=== PATIENT | female | born 1935 | race Caucasian/White ===

== ENCOUNTER → 2017-10-14 07:39 | Outpatient (CLI) | payer MEDICARE, SELFPAY ==
[2017-01-30 09:16] VITALS: BP 141/67; BMI 24.0
[2017-10-14 08:35] LABS: T4 Free Direct 1.51 ng/dL (0.76-1.46); Thyroid Stim Hormone (TSH) 0.57 uIU/mL (0.358-3.74)
[2017-10-15 11:29] LABS: Vitamin D,25 Hydroxy 64.5 ng/mL (19.95-100.01)
== END ==
PROVIDERS: Family Provider Nurse Practitioner Family; PCP Nurse Practitioner Family; Visit Provider Nurse Practitioner Family
DX: E03.9 Hypothyroidism, unspecified (principal); E55.9 Vitamin D deficiency, unspecified
CPT/HCPCS: 36415; 82306; 84439; 84443

== ENCOUNTER → 2017-12-02 07:24 | Outpatient (CLI) | payer MEDICARE, SELFPAY ==
[2017-12-02 08:28] LABS: Absolute Lymphocyte Count 1.47 X10^3/ul (0.83-4.51); Absolute Neutrophil Count 2.8 X10^3/uL (2.0-7.7); Basophil# 0.07 X10^3/uL; Basophil% 1.4 % (0-1); Eosinophil# 0.25 X10^3/uL; Eosinophils% 4.8 % (0-5); Hematocrit 41.5 % (37-47); Lymphocyte # 1.47 X10^3/ul (4.0); Lymphocyte % 28.5 % (19-41); Mean Corp Hgb Conc 33.7 g/gl (32-36); Mean Corpuscular Hgb 31.5 pg (27.0-32.0); Mean Corpuscular Volume 93.5 fL (81-99); Mean Platelet Vol. 12.2 fl (6.2-12.0); Monocyte# 0.58 X10^3/uL; Monocyte% 11.2 % (0-10); Neutrophil # 2.79 X10^3/uL (2.7-7.7); Neutrophil % 54.1 % (47-70); POSITIVE COUNT NO; POSITIVE DIFFERENTIAL NO; POSITIVE MORPHOLOGY NO; Platelet Count 258 K/mm3 (150-450); RBC Distribution Width CV 12.7 % (11.6-14.6); RBC Distribution Width SD 42.6 fl (35.1-43.9); Red Blood Count 4.44 M/mm3 (4.2-5.4); White Blood Count 5.2 K/mm3 (4.4-11.0)
[2017-12-02 09:14] LABS: ALB/GLOB Ratio 0.9 RATIO (0.9-2.4); AST(SGOT) 22 U/L (15-37); Alanine Aminotransfer ALT/SGPT 20 U/L (13-56); Albumin, Serum 3.6 g/dL (3.2-5.0); Alkaline Phosphatase 85 U/L (45-117); Anion Gap 6 (5-15); BUN 13 mg/dL (7-18); BUN/Creat Ratio 11.4 RATIO (10-20); CRP < 2.90 mg/L (0.0-3.0); Calcium,Total 8.9 mg/dL (8.5-10.1); Chloride 106 mmol/L (98-107); Creatinine, Serum 1.14 mg/dL (0.55-1.02); EST Glomerular Filtration Rate 49 mL/min (>60); Est Glom Filt Rate - Afr Amer 59 mL/min (>60); Globulin 4.1 g/dL (2.2-4.2); Glucose 94 mg/dL (74-106); Potassium 4.1 mmol/L (3.5-5.1); Protein, Total 7.7 g/dL (6.4-8.2); Sodium Level 140 mmol/L (136-145); T4 Free Direct 0.93 ng/dL (0.76-1.46)
[2017-12-02 09:19] LABS: Erythrocyte Sedimentation Rate 17 mm/hr (0-30)
[2017-12-03 10:03] LABS: Vitamin D,25 Hydroxy 83.3 ng/mL (29.95-100.01)
== END ==
PROVIDERS: Family Provider Nurse Practitioner Family; PCP Nurse Practitioner Family; Visit Provider Nurse Practitioner Family
DX: E03.9 Hypothyroidism, unspecified (principal); M25.50 Pain in unspecified joint; E55.9 Vitamin D deficiency, unspecified; D63.8 Anemia in other chronic diseases classified elsewhere
CPT/HCPCS: 36415; 80053; 82306; 84439; 84443; 85025; 85652; 86140

== ENCOUNTER 2018-04-18 21:00 | Emergency (ER) | payer MEDICARE, SELFPAY ==
[2018-04-18 21:01] VITALS: BP 147/79; PULSE 65; RESP 16; TEMP 36.7; O2SAT 100; BMI 23.4
--- NOTE | 2018-04-18 22:47 | ED.VISSUMM ---
- ER Visit Summary Date of Service: 04/18/18 Chief Complaint: Scalp laceration History of Present Illness: The patient is a 82 F here with family for mechanical fall with scalp laceration. Occurred at 8 PM. Reports patient sits on a low child's chair while talking on the phone. She states she fell off in the head on the table. No loss of consciousness. Denies headache, neck pain, nausea or vomiting. Ambulated in the ED. She does take baby aspirins. Tetanus unknown. No other complaints. Physical Examination: General: Alert and oriented ?3, no acute distress HEENT: Normocephalic, 3 cm vertical laceration crown of the scalp on the right side, minimal bleeding. No hemotympanum moist mucosa membranes Neck: supple, nontender. Cardiovascular: Regular rate and rhythm, no murmurs Respiratory: Normal breath sounds, symmetric, no distress Abdomen: Soft, nontender, nondistended Extremities: Nontender, no edema, pulses intact ?4 Neuro: no focal neurological deficits. Test Results: CT head no intracranial process Emergency Department Course and Treatment: Patient no focal neurological deficit. Denies headache. Scalp laceration was stapled bedside with total 4. Head CT negative. Patient remained stable throughout. Discuss Tylenol as needed, wound care discussed. Follow with PCP for staple removal. Family bedside and updated. Treatment Plan: [] Disposition: Discharge Impression: 1. Scalp laceration 2. Close head injury 3. Tetanus update This note was generated with [employer] dictation software. It may contain incorrect words, spelling, and punctuation that were not noted in review of the chart prior to signing ED Disposition - Plan for ED Patient: Disposition: Home or Assisted Living Chief Complaint: Fall Diagnosis: Scalp laceration, Closed head injury, Tetanus toxoid vaccination administered at current visit Instructions: ED Head Injury Closed, ED Laceration Scalp Stitch Or Stap Referrals: Alejandro Steinberg, NURIS-C [Primary Care Provider] - 10 Day for suture removal
[2018-04-18] MEDS: Diphth,Pertuss(Acell),Tet Vac 0.5 ML Vial IM (23:30)
[2018-04-18 23:36] VITALS: BP 154/65; PULSE 60; RESP 18; O2SAT 97
== END 2018-04-18 23:46 | disposition home or self-care (01) ==
PROVIDERS: Emergency Provider Emergency Medicine; Family Provider Nurse Practitioner Family; PCP Nurse Practitioner Family
DX: S01.01XA Laceration without foreign body of scalp, initial encounter (principal); W18.39XA Other fall on same level, initial encounter; Y93.89 Activity, other specified; Y92.009 Unspecified place in unspecified non-institutional (private) residence as the place of occurrence of the external cause; Y99.8 Other external cause status; E03.9 Hypothyroidism, unspecified; H40.9 Unspecified glaucoma; Z79.82 Long term (current) use of aspirin; Z79.899 Other long term (current) drug therapy
CPT/HCPCS: 12002; 70450; 90471; 90715; 99283

== ENCOUNTER 2018-12-19 16:34 | Emergency (ER) | payer MEDICARE, SELFPAY ==
[2018-12-19 16:35] VITALS: BP 187/87; PULSE 61; RESP 16; TEMP 36.6; O2SAT 97; BMI 25.5
--- NOTE | 2018-12-19 17:00 | CT_ITS ---
STUDY: CT BRAIN WITHOUT CONTRAST REASON FOR EXAM: Female, 83 years old. Trauma RADIATION DOSAGE (If Supplied By Facility): CTDIvol = ( 44.99 ) mGy, DLP = ( 711.75 ) mGycm TECHNIQUE: Transaxial CT imaging of the brain was performed without administration of intravenous contrast material. Individualized dose optimization techniques were used for this CT. COMPARISON: April 18, 2018 FINDINGS: Normal soft tissue structures. Normal calvarium. Calcification of cavernous carotids. Mild atrophy and periventricular white matter ischemic changes.. Normal basal ganglia and thalami. Normal brainstem. Normal cerebellum. There is no intracranial hemorrhage. There are no findings of an acute ischemic infarction. Normal visualized paranasal sinuses. CT/Brain/Head without Contrast IMPRESSION: Mild atrophy and periventricular white matter ischemic changes. No evidence for acute intracranial bleed. Electronically Signed: Tommy Rose MD at 17:50 EDT , Service support ,
--- NOTE | 2018-12-19 17:00 | RAD_ITS ---
STUDY: X-RAY - LUMBAR SPINE REASON FOR EXAM: Female, 83 years old. Posttraumatic back pain TECHNIQUE: 3 view(s) of the lumbar spine were obtained. COMPARISON: None FINDINGS: Normal lumbar lordosis. There is no substantial scoliosis. There is a normal alignment of the vertebrae. No evidence for acute fracture or subluxation. Multilevel disc space narrowing and mild osteophytic spurring. Calcification of the aorta without evidence for aneurysm RAD/Lumbar Spine 2 or 3 Views IMPRESSION: Moderate spondylosis. No evidence for acute fracture or subluxation. Electronically Signed: Tommy Rose MD at 17:45 EDT , Service support ,
--- NOTE | 2018-12-19 17:00 | RAD_ITS ---
STUDY: X-RAY - THORACIC SPINE REASON FOR EXAM: Female, 83 years old. Trauma TECHNIQUE: 3 view(s) of the thoracic spine were obtained. COMPARISON: None. FINDINGS: Normal kyphosis of the thoracic spine. There is no substantial scoliosis. No evidence for acute fractures fixation. Mild multilevel disc space narrowing and osteophytic spurring.. The soft tissue structures are unremarkable. RAD/Thoracic Spine 3 Views IMPRESSION: Mild spondylosis. No evidence for acute fracture Electronically Signed: Tommy Rose MD at 17:48 EDT , Service support ,
--- NOTE | 2018-12-19 17:00 | RAD_ITS ---
STUDY: X-RAY - RIGHT FOOT CLINICAL: Female, 83 years old. Trauma TECHNIQUE: 3 view(s) of the foot. COMPARISON: None. FINDINGS: Normal talus, calcaneus, and tarsal bones. Normal visualized subtalar, talonavicular, calcaneocuboid, tarsal and tarsometatarsal articulations. Normal metatarsi. Mild hallux valgus deformity of the metatarsophalangeal joint of the great toe. Normal tibial and fibular sesamoid bones. Normal interphalangeal joint of the great toe. Nonspecific sclerosis of the distal phalanx of the great toe likely benign. Normal second through fifth metatarsophalangeal joints. Normal interphalangeal joints and phalanges of the lesser toes. The soft tissue structures are unremarkable. RAD/Foot min 3 Views IMPRESSION: No acute fracture or other significant bony pathology Electronically Signed: Tommy Rose MD at 17:46 EDT , Service support ,
--- NOTE | 2018-12-19 17:06 | ED.DCSUM_ITS ---
- ER Visit Summary Date of Service: 12/19/18 Chief Complaint: Fall History of Present Illness: The patient is a 83 F presenting after fall. Patient states that she was in a house that she was not familiar with. There are a lot of steps into different rooms. She missed a step and fell. She hit her head but did not lose consciousness. She is not on anticoagulants. She complains of right ankle pain and low back pain. She was able to ambulate after the fall. Patient also had a fall 2 days ago. She was cleaning the top of her car and standing on the floor of the car. She fell hitting her left shoulder. She did not lose consciousness. No other complaints. Physical Examination: Vitals are stable. Patient is afebrile. Alert no acute distress. HEENT exam is unremarkable. Neck is nontender Lungs are clear and equal bilaterally. Heart is regular rate and rhythm. Abdomen is soft nontender nondistended. Back: Mild diffuse tenderness with no step-off Extremities right lateral ankle tenderness, right midfoot ecchymosis. Left lateral shoulder ecchymosis. Active full range of motion Skin is warm and dry. No focal neurologic deficit. Remainder of exam is unremarkable. Emergency Department Course and Treatment: Patient declined CT cervical spine and x-ray left shoulder. CT head shows no acute process. X-ray thoracic and lumbar spine show no evidence of fracture. X-ray right foot and ankle show no fracture. Patient was able to ambulate with a walker in the ED. She is advised to follow-up with her primary care physician. Advised return to ED for worsening complaints. Disposition: Discharge home Impression: Status post mechanical fall, right ankle sprain, closed head injury This note was generated with [employer] dictation software. It may contain incorrect words, spelling, and punctuation that were not noted in review of the chart prior to signing ED Disposition - Plan for ED Patient: Instructions: ED Mechanical Fall Referrals: Cookie Cruz MD [STAFF PHYSICIAN] -
--- NOTE | 2018-12-19 17:15 | RAD_ITS ---
STUDY: X-RAY - RIGHT ANKLE REASON FOR EXAM: Female, 83 years old. Trauma TECHNIQUE: 3 view(s) of the ankle. COMPARISON: None. FINDINGS: Normal visualized distal tibia and fibula. Normal medial and lateral malleoli. Normal tibiotalar articulation and ankle mortise. Normal visualized talus and calcaneus. The visualized subtalar, talonavicular, calcaneocuboid and tarsal articulations are normal. The soft tissue structures are unremarkable. RAD/Ankle min 3 Views IMPRESSION: Normal x-ray examination of the ankle. Electronically Signed: Tommy Rose MD at 17:47 EDT , Service support ,
--- NOTE | 2018-12-19 18:41 | ED.DEP ---
ED Disposition - Plan for ED Patient: Instructions: ED Mechanical Fall Referrals: Cookie Cruz MD [STAFF PHYSICIAN] -
[2018-12-19 19:05] VITALS: BP 172/76; PULSE 87; RESP 18; O2SAT 95
== END 2018-12-19 18:55 | disposition home or self-care (01) ==
LOC: ED 17:38
PROVIDERS: Emergency Provider Emergency Medicine; Family Provider Nurse Practitioner Family; PCP Nurse Practitioner Family
DX: S93.401A Sprain of unspecified ligament of right ankle, initial encounter (principal); S93.601A Unspecified sprain of right foot, initial encounter; S09.90XA Unspecified injury of head, initial encounter; W10.8XXA Fall (on) (from) other stairs and steps, initial encounter; Y93.89 Activity, other specified; Y92.009 Unspecified place in unspecified non-institutional (private) residence as the place of occurrence of the external cause; W17.89XA Other fall from one level to another, initial encounter; I10 Essential (primary) hypertension; I34.1 Nonrheumatic mitral (valve) prolapse; E07.9 Disorder of thyroid, unspecified; Z79.82 Long term (current) use of aspirin
CPT/HCPCS: 70450; 72072; 72100; 73610; 73630; 99282

== ENCOUNTER → 2019-05-22 09:18 | Outpatient (CLI) | payer MEDICARE, SELFPAY ==
--- NOTE | 2019-05-22 09:25 | RAD_ITS ---
STUDY: X-RAY - THORACIC SPINE REASON FOR EXAM: Female, 83 years old. Chronic back pain. TECHNIQUE: 2 view(s) of the thoracic spine were obtained. COMPARISON: Comparison is made with prior study dated December 19, 2018. FINDINGS: Normal kyphosis of the thoracic spine. There is no substantial scoliosis. There is demineralization of the thoracic spine with endplate spondylosis. There is multilevel disc space narrowing of the thoracic spine. Stable minimal loss of height of a lower dorsal vertebrae. Atherosclerotic calcification of the aortic arch. RAD/Thoracic Spine 2 Views IMPRESSION: Spondylosis and multilevel disc space narrowing. Stable minimal loss of height of a lower dorsal vertebrae. Electronically Signed: Miguel Deleon, at 13:06 EDT , Service support ,
--- NOTE | 2019-05-22 09:33 | RAD_ITS ---
STUDY: X-RAY - LUMBAR SPINE REASON FOR EXAM: Female, 83 years old. Back pain TECHNIQUE: view(s) of the lumbar spine were obtained. COMPARISON: None FINDINGS: Normal lumbar lordosis. There is no substantial scoliosis. There is a normal alignment of the vertebrae. Normal vertebral bodies and endplates. Normal disc space heights. There are expected age-related degenerative changes. The soft tissue structures are unremarkable. RAD/Lumbar Spine 2 or 3 Views IMPRESSION: Unremarkable age-appropriate lumbar spine. Electronically Signed: Abena Cabrera, at 18:25 EDT Tel , Service support ,
[2019-05-22 10:57] LABS: Hematocrit 40.5 % (37-47); Hemoglobin 13.4 g/dL (12.0-15.0); Mean Corp Hgb Conc 33.1 g/dL (32-36); Mean Corpuscular Hgb 31.5 pg (27.0-32.0); Mean Corpuscular Volume 95.1 fL (81-99); Mean Platelet Vol. 12.4 fl (6.2-12.0); Platelet Count 237 K/mm3 (150-450); RBC Distribution Width CV 12.3 % (11.6-14.6); RBC Distribution Width SD 42.6 fl (35.1-43.9); RET-HE 35.9 pg (30-35); Red Blood Count 4.26 M/mm3 (4.2-5.4); White Blood Count 5.3 K/mm3 (4.4-11.0)
[2019-05-22 11:32] LABS: Vitamin D,25 Hydroxy 112.8 ng/mL (29.95-100.01)
[2019-05-22 11:37] LABS: ALB/GLOB Ratio 0.9 RATIO (0.9-2.4); AST(SGOT) 18 U/L (15-37); Alanine Aminotransfer ALT/SGPT 17 U/L (13-56); Albumin, Serum 3.5 g/dL (3.2-5.0); Alkaline Phosphatase 83 U/L (45-117); Anion Gap 10 (5-15); BUN 13 mg/dL (7-18); BUN/Creat Ratio 11.6 RATIO (10-20); Chloride 106 mmol/L (98-107); Cholesterol 184 mg/dL (200); Creatinine, Serum 1.12 mg/dL (0.55-1.02); EST Glomerular Filtration Rate 49 mL/min (>60); Est Glom Filt Rate - Afr Amer 60 mL/min (>60); Globulin 4.1 g/dL (2.2-4.2); Glucose 99 mg/dL (74-106); High Density Lipoprotein 48 mg/dL; Iron 61 ug/dL (50-170); Iron Binding Capacity,Total 268 ug/dL (250-450); Protein, Total 7.6 g/dL (6.4-8.2); Sodium Level 141 mmol/L (136-145); T4 Free Direct 1.68 ng/dL (0.76-1.46); Thyroid Stim Hormone (TSH) 0.54 uIU/mL (0.358-3.74); Triglycerides 109 mg/dL; Very Low Density Lipoprotein 22 mg/dL (5-40)
[2019-05-22 13:33] LABS: Microalbumin,Random Urine 11.1 mg/L (NO RANGE EST.); Microalbumin:Creatinine Ratio 8.2 mg/g CRE (<30 mg/g CRE)
== END ==
PROVIDERS: Family Provider Nurse Practitioner Family; PCP Nurse Practitioner Family; Referring Provider Nurse Practitioner Family; Visit Provider Nurse Practitioner Family
DX: M54.5 Low back pain (principal); M54.6 Pain in thoracic spine; E78.5 Hyperlipidemia, unspecified; D64.9 Anemia, unspecified; E03.9 Hypothyroidism, unspecified; E55.9 Vitamin D deficiency, unspecified
CPT/HCPCS: 36415; 72070; 72100; 80053; 80061; 82043; 82306; 82570; 83540; 83550; 84439; 84443; 85027; 85045

== ENCOUNTER → 2020-02-21 16:09 | Outpatient (CLI) | payer MEDICARE, SELFPAY ==
[2019-08-09 08:54] VITALS: BMI 20.9
--- NOTE | 2020-02-21 16:31 | MRI_ITS ---
STUDY: MRI BRAIN WITH AND WITHOUT CONTRAST REASON FOR EXAM: Female, 84 years old. R sided weakness, x 6 months, unable to use r arm, word finding trouble TECHNIQUE: Standardized multiplanar fat and water weighted pulse sequences were obtained. IV 10cc dotarem was administered for the contrast portion of the examination. COMPARISON: MR brain December 19, 2018 FINDINGS: There is moderate cerebral atrophy with widening of the extra-axial spaces and ventricular dilatation. There are multiple white matter hyperintensities, distributed throughout the deep white matter tracts of the cerebral hemispheres, consistent with moderate chronic white matter ischemic changes. Normal bilateral basal ganglia. Normal thalami. There is no extra-axial fluid accumulation. Normal flow voids within the major intracranial circulation suggesting patency by spin echo criteria. Normal venous enhancement. There is no enhancing intra-axial or extra-axial abnormality. Normal sella turcica, pituitary gland, infundibular stalk, optic chiasm and hypothalamus. Normal tectal plate and pineal gland. Normal midbrain, duane and medulla. Normal cerebellum. Normal basal cisterns. Normal bilateral temporal bones. Normal bilateral internal auditory canals. No demonstrated orbital abnormality, within the constraints of a routine brain study. Normal visualized paranasal sinuses. Normal calvarium and skull base. Normal visualized soft tissue structures. Normal visualized upper cervical spine. MRI/Brain W/WO Contrast IMPRESSION: Involutional changes of the brain, as described above. Electronically Signed: Nathan Valencia MD at 18:08 EDT , Service support ,
[2020-02-21 19:31] LABS: CREATININE FINGERSTICK 0.8 mg/dL (0.55-1.02); EGFR FINGERSTICK > 60.0000 mL/min (>60)
== END ==
PROVIDERS: PCP Family Medicine; Referring Provider Family Medicine; Visit Provider Family Medicine
DX: R29.898 Other symptoms and signs involving the musculoskeletal system (principal); R20.0 Anesthesia of skin; R47.89 Other speech disturbances
CPT/HCPCS: 70553

== ENCOUNTER → 2020-03-21 06:00 | Outpatient (CLI) | payer MEDICARE, SELFPAY ==
[2019-08-09 08:54] VITALS: BMI 20.9
--- NOTE | 2020-03-21 | TELEMED_ITS ---
[facility] Tele[facility] has confirmed receipt of a request for visit. This document confirms receipt of the order initiating the consult. To find the results of the consultation, please view the patient's reports for the scanned Telemed Consult.
== END ==
PROVIDERS: PCP Family Medicine; Referring Provider Family Medicine; Visit Provider Family Medicine
DX: R20.0 Anesthesia of skin (principal); R53.1 Weakness; R74.9 Abnormal serum enzyme level, unspecified
CPT/HCPCS: 95819

== ENCOUNTER → 2020-04-04 11:20 | Outpatient (CLI) | payer MEDICARE, SELFPAY ==
[2020-04-04 10:16] VITALS: BMI 21.0
--- NOTE | 2020-04-04 11:25 | RAD_ITS ---
STUDY: X-RAY - RIGHT SHOULDER REASON FOR EXAM: Female, 84 years old. PAIN AND STIFFNESS, NKI PER PT TECHNIQUE: 4 view(s) of the shoulder. COMPARISON: None. FINDINGS: Normal glenohumeral articulation. Normal acromioclavicular joint. Normal acromion. Normal humeral head and visualized proximal humerus. The soft tissue structures are unremarkable. Normal visualized pulmonary apex. RAD/Shoulder min 2 Views IMPRESSION: Normal x-ray examination of the shoulder. Electronically Signed: Nathan Valencia MD at 20:31 EDT , Service support ,
[2020-04-04 12:17] LABS: Hematocrit 41.2 % (37-47); Hemoglobin 13.4 g/dL (12.0-15.0); Mean Corp Hgb Conc 32.5 g/dL (32-36); Mean Corpuscular Hgb 31.7 pg (27.0-32.0); Mean Corpuscular Volume 97.4 fL (81-99); Mean Platelet Vol. 11.3 fl (6.2-12.0); Platelet Count 249 K/mm3 (150-450); RBC Distribution Width CV 12.1 % (11.6-14.6); RBC Distribution Width SD 43.3 fl (35.1-43.9); Red Blood Count 4.23 M/mm3 (4.2-5.4); White Blood Count 7.1 K/mm3 (4.4-11.0)
[2020-04-04 12:48] LABS: Vitamin B12 306 pg/mL (211-911)
[2020-04-04 13:53] LABS: ALB/GLOB Ratio 0.9 RATIO (0.9-2.4); AST(SGOT) 19 U/L (15-37); Alanine Aminotransfer ALT/SGPT 21 U/L (13-56); Albumin, Serum 3.8 g/dL (3.2-5.0); Alkaline Phosphatase 76 U/L (45-117); Anion Gap 2 (5-15); BUN 15 mg/dL (7-18); BUN/Creat Ratio 16.1 RATIO (10-20); Calcium,Total 9.1 mg/dL (8.5-10.1); Chloride 106 mmol/L (98-107); Cholesterol 197 mg/dL (200); Creatinine, Serum 0.93 mg/dL (0.55-1.02); EST Glomerular Filtration Rate 61 mL/min (>60); Est Glom Filt Rate - Afr Amer 74 mL/min (>60); Globulin 4.1 g/dL (2.2-4.2); Glucose 100 mg/dL (74-106); High Density Lipoprotein 58 mg/dL; Potassium 4.2 mmol/L (3.5-5.1); Protein, Total 7.9 g/dL (6.4-8.2); Sodium Level 137 mmol/L (136-145); Thyroid Stim Hormone (TSH) 0.37 uIU/mL (0.358-3.74); Triglycerides 82 mg/dL; Very Low Density Lipoprotein 16 mg/dL (5-40)
== END ==
PROVIDERS: PCP Family Medicine; Referring Provider Nurse Practitioner Family; Visit Provider Nurse Practitioner Family
DX: S49.91XA Unspecified injury of right shoulder and upper arm, initial encounter (principal); E03.9 Hypothyroidism, unspecified; F03.90 Unspecified dementia, unspecified severity, without behavioral disturbance, psychotic disturbance, mood disturbance, and anxiety; Z86.73 Personal history of transient ischemic attack (TIA), and cerebral infarction without residual deficits
CPT/HCPCS: 36415; 73030; 80053; 80061; 82607; 82746; 84443; 85027

== ENCOUNTER → 2020-04-15 12:41 | Outpatient (CLI) | payer MEDICARE, SELFPAY ==
[2020-04-04 10:16] VITALS: BMI 21.0
--- NOTE | 2020-04-15 12:44 | CDU_ITS ---
Reason For Study: CVA Rt. Velocities/BP Lt. Velocities/BP Prox CCA 91.7/10.8 cm/sec. Prox CCA 71.7/12.4 cm/sec. Mid CCA 82.6/13.4 cm/sec. Mid CCA 60.8/13.5 cm/sec. Dist CCA 68.2/10.8 cm/sec. Dist CCA 79.4/12.4 cm/sec. Prox ICA 77.3/12.1 cm/sec. Prox ICA 66.2/11.3 cm/sec. Mid ICA 78.6/20.0 cm/sec. Mid ICA 75.0/16.8 cm/sec. Dist ICA 138/26.7 cm/sec. Dist ICA 128.4/31.6 cm/sec. Rt. ICA/CCA = 1.67. Lt. ICA/CCA = 1.79. Prox ECA 107.3 cm/sec. Prox ECA 102.5/9.1 cm/sec. Rt. Vert. 62.9/8.5 cm/sec. Lt. Vert. 71.8/11.5 cm/sec. Right Extracranial There is homogeneous, smooth atherosclerotic plaque noted in the right common carotid artery. There is homogeneous, smooth atherosclerotic plaque noted in the right internal carotid artery. The right internal carotid artery is very tortuous. There is intimal thickening but no significant atherosclerotic plaque noted in the right external carotid artery. Antegrade flow is noted in the right vertebral artery. Left Extracranial There is homogeneous, smooth atherosclerotic plaque noted in the left common carotid artery. There is heterogeneous, irregular atherosclerotic plaque noted in the left internal carotid artery. There is intimal thickening but no significant atherosclerotic plaque noted in the left external carotid artery. Antegrade flow is noted in the left vertebral artery. Procedure Carotid Duplex 25282. Exam performed in department. Interpretation Summary Tortuous right internal carotid with minimal plague and <50% stenosis. <50% stenosis right external carotid Minimal irregular plague proximal left internal carotid with <50% stenosis <50% stenosis left external carotid Patent, antegrade vertebrals bilaterally Ordering Physician: Helga Smith Referring Physician: Darlene Zamora Performed By: Chelsy Paige RVT and Student
== END ==
PROVIDERS: PCP Family Medicine; Referring Provider Nurse Practitioner Family; Visit Provider Nurse Practitioner Family
DX: I65.23 Occlusion and stenosis of bilateral carotid arteries (principal)
CPT/HCPCS: 93880

== ENCOUNTER 2020-07-23 11:22 | Emergency (ER) | payer MEDICARE, SELFPAY ==
[2020-05-09 14:26] VITALS: BMI 20.9
[2020-07-23 11:23] VITALS: BP 150/72; PULSE 75; RESP 18; TEMP 36.6; O2SAT 99; BMI 18.3
--- NOTE | 2020-07-23 11:50 | RAD_ITS ---
STUDY: X-RAY - PELVIS AND RIGHT HIP REASON FOR EXAM: Female, 84 years old. Pain after fall. TECHNIQUE: 3 views of the pelvis and hip. COMPARISON: None. FINDINGS: There is a non-specific bowel gas pattern. Normal visualized soft tissue structures. Generalized osteopenia. Normal bilateral iliac wings, sacroiliac joints and visualized sacrum. Normal bilateral superior and inferior pubic rami. Normal pubic symphysis. Normal bilateral ischial tuberosities. Mild arthrosis of both hips. RAD/HIP, UNI W/ Pelvis 2-3 Views IMPRESSION: Osteopenia with arthrosis of both hips. No acute osseous abnormality. Electronically Signed: Loc Huynh MD at 12:43 EST , Service support ,
--- NOTE | 2020-07-23 11:50 | CT_ITS ---
STUDY: CT FACIAL BONES WITHOUT CONTRAST REASON FOR EXAM: Female, 84 years old. POLY TRAUMA, FAL LAT HOME. BRUISE ON FOREHEAD. RADIATION DOSAGE (If Supplied By Facility): CTDIvol = ( 29.38 ) mGy, DLP = ( 606.22 ) mGycm TECHNIQUE: The patient was scanned in a multi detector CT scanner. Sagittal and coronal images were reconstructed. Individualized dose optimization techniques were used for this CT. COMPARISON: None. FINDINGS: Normal soft tissue structures. Normal orbital wetzel and orbital contents. Normal nasal bones and anterior nasal spine. Normal facial bones. There is no demonstrated fracture. Normal visualized paranasal sinuses. CT/Sinus/Facial Bone IMPRESSION: Normal unenhanced CT of the facial bones. Electronically Signed: Miguel Deleon, at 12:47 EST , Service support ,
--- NOTE | 2020-07-23 11:50 | RAD_ITS ---
STUDY: X-RAY - RIGHT HAND REASON FOR EXAM: Female, 84 years old. PAIN D/T FALL. LTD ROM D/T PARKINSON TECHNIQUE: 3 view(s) of the hand. COMPARISON: None. FINDINGS: Normal radiocarpal articulation. Normal distal radioulnar joint. There is diffuse demineralization of the carpal bones. Normal carpal articulations There is degenerative arthrosis of the carpometacarpal articulation of the thumb with lateral subluxation of the first metacarpus. Normal second through fifth carpometacarpal joints. Normal metacarpi. Flexion deformity at the metacarpophalangeal joints. The soft tissue structures are unremarkable. RAD/Hand Min 3 Views IMPRESSION: Limited examination. Flexion deformity at the metacarpal phalangeal joints. Degenerative changes at the first carpal metacarpal joint. Electronically Signed: Miguel Deleon, at 12:49 EST , Service support ,
--- NOTE | 2020-07-23 11:50 | CT_ITS ---
STUDY: CT BRAIN WITHOUT CONTRAST REASON FOR EXAM: Female, 84 years old. POLY TRAUMA, FAL LAT HOME. BRUISE ON FOREHEAD. RADIATION DOSAGE (If Supplied By Facility): CTDIvol = ( 44.99 ) mGy, DLP = ( 711.75 ) mGycm TECHNIQUE: Transaxial CT imaging of the brain was performed without administration of intravenous contrast material. Individualized dose optimization techniques were used for this CT. COMPARISON: Comparison is made with prior study dated 12/19/2018. FINDINGS: Normal soft tissue structures. Normal calvarium. There is mild cerebral atrophy with widening of the extra-axial spaces and ventricular dilatation. There are areas of decreased attenuation within the white matter tracts of the supratentorial brain, consistent with microvascular disease changes. There are small punctate calcifications of the basal ganglia which are seen in the aging brain as a normal variant. Normal brainstem. There is mild cerebellar atrophy. There is no intracranial hemorrhage. There are no findings of an acute ischemic infarction. Atherosclerotic calcification of the cavernous portions of the internal carotid origins bilaterally. Normal visualized paranasal sinuses. CT/Brain/Head without Contrast IMPRESSION: Chronic involutional changes of the brain. Electronically Signed: Miguel Deleon, at 12:46 EST , Service support ,
--- NOTE | 2020-07-23 11:50 | CT_ITS ---
STUDY: CT CERVICAL SPINE WITHOUT CONTRAST REASON FOR EXAM: Female, 84 years old. POLY TRAUMA, FAL LAT HOME. BRUISE ON FOREHEAD. RADIATION DOSAGE (If Supplied By Facility): CTDIvol = ( 11.86 ) mGy, DLP = ( 218.34 ) mGycm TECHNIQUE: High resolution transaxial imaging was performed without contrast material. Sagittal and coronal images were reconstructed. Individualized dose optimization techniques were used for this CT. COMPARISON: None FINDINGS: Normal craniovertebral junction. There are degenerative changes of the anterior atlantoaxial articulation. Normal odontoid process. There is reversal of the normal cervical lordosis. Multilevel spondylosis. C2-3: Facet joint osteoarthritis and hypertrophy on the right side with the moderate right neural foraminal stenosis. C3-4: Moderate degree of disc space narrowing with spondylosis. Uncovertebral arthrosis. Mild bilateral neural foraminal stenosis. C4-5: Moderate degree of disc space narrowing with spondylosis. Uncovertebral arthrosis. Moderate degree of bilateral neural foraminal stenosis. C5-6: Moderate degree of disc space narrowing. Spondylosis. Uncovertebral arthrosis. Mild degree of bilateral puneet foraminal stenosis worse on the left side. C6-7: Moderate degree of disc space narrowing. Spondylosis. Uncovertebral arthrosis. C7-T1: Normal endplates. Normal disc height and morphology. Normal central canal and intervertebral neuroforamina. Scarring in both lung apices. CT/Spine Cervical without Contras IMPRESSION: Multilevel degenerative changes, as described above. Electronically Signed: Miguel Deleon, at 12:45 EST , Service support ,
--- NOTE | 2020-07-23 13:34 | ED.VIS.GEN ---
History of Present Illness Chief Complaint: Fall Informant: Patient, Family Narrative: Patient lives at home and sustained a fall in the bathroom this morning. She states she was on the ground for about 30 minutes before she was able to get to her life alert. Family notes that she has pain in her right hip, right hand, and bruising to her face and head. She has been able to ambulate short distances. She has Parkinson's. He lives alone but has close family. Family can stay with her. - Past Medical History (1) Essential (primary) hypertension Status: Chronic Past Medical History - Allergies and Home Meds Allergies/Adverse Reactions: Allergies latanoprost Allergy (Unknown, Verified 07/23/20 11:26) Unknown timolol [From Timoptic] Allergy (Verified 07/23/20 11:26) Other BRADYCARDIA prednisone Adverse Reaction (Verified 07/23/20 11:26) Other Primary Care Physician: Darlene Zamora DO [Primary Care Provider] - Past Medical History: - - Parkinson's Surgical History: noncontributory Lives: Alone Smoking Status: Never smoker Drugs: None Review of Systems General: Denies: Chills, Fever, Sweats Eyes: Denies: Visual changes - bilaterally, Diplopia ENT: Denies: Rhinorrhea, Sore throat Cardiovascular: Denies: Chest pain, Palpitations Respiratory: Denies: Dyspnea, Cough, Dyspnea on exertion Gastrointestinal: Denies: Abdominal pain, Nausea, Vomiting, Diarrhea, Melena, Hematochezia Genitourinary: Denies: Dysuria, Hematuria, Frequency Musculoskeletal: Reports: Extremity Pain. Denies: Back pain Skin: Reports: Wounds. Denies: Rash Neurological: Denies: Headache, Weakness, Numbness Physical Exam Vital Signs/Narrative: Vital Signs Temp Pulse Resp BP Pulse Ox 07/23/20 11:23 97.9 F 75 18 150/72 H 99 Inital Vital Signs reviewed: Yes General: Well nourished, Well developed, No Acute Distress Head: Normocephalic, Trauma - Patient has forehead and periorbital ecchymosis. Eyes: Perrl, EOMI ENT: Moist mucous membranes, No rhinorrhea Neck: Supple, Nontender Cardiovascular: Regular rate, Regular rhythm, No murmurs Respiratory: No distress, CTA bilaterally, Chest nontender Abdomen: Soft, Nontender, Nondistended, Normal bowel sounds Back: Nontender, Normal Inspection Extremities: No edema, Tenderness - Tenderness over the right greater trochanter. Negative logroll. There is contusion over the right fourth and fifth MCP joint. Skin: Normal color, No rash Neurological: Alert, Oriented x3, Cranial nerves II-XII grossly intact, Normal Strength, Normal Sensation Psychological: Normal affect, Normal Mood Diagnostic/Tx/Re-eval Clinical Impression(s) from Imaging Studies Brain CT 07/23/20 11:50 IMPRESSION: Chronic involutional changes of the brain. Electronically Signed: Miguel Deleon, at 12:46 EST , Service support , Cervical Spine CT 07/23/20 11:50 IMPRESSION: Multilevel degenerative changes, as described above. Electronically Signed: Miguel Deleon, at 12:45 EST , Service support , Facial/Sinus 07/23/20 11:50 IMPRESSION: Normal unenhanced CT of the facial bones. Electronically Signed: Miguel Deleon, at 12:47 EST , Service support , Hand X-Ray 07/23/20 11:50 IMPRESSION: Limited examination. Flexion deformity at the metacarpal phalangeal joints. Degenerative changes at the first carpal metacarpal joint. Electronically Signed: Miguel Deleon, at 12:49 EST , Service support , Hip/Pelvis X-Ray 07/23/20 11:50 IMPRESSION: Osteopenia with arthrosis of both hips. No acute osseous abnormality. Electronically Signed: Loc Huynh MD at 12:43 EST , Service support , - Medical Decision Making Imaging was negative for acute fractures. Patient and family was advised that she is going to be sore and bruised. Granddaughter is going to be able to stay with her. They are comfortable taking her home. ED Disposition - Plan for ED Patient: Disposition: Home or Assisted Living Diagnosis: Facial contusion, Contusion of right hip, Contusion of right hand, Scalp contusion Instructions: ED CONTUSION Face No Wake Up], ED CONTUSION Hip Referrals: Darlene Zamora DO [Primary Care Provider] - As Needed
== END 2020-07-23 14:00 | disposition home or self-care (01) ==
PROVIDERS: Emergency Provider Emergency Medicine; PCP Family Medicine
DX: S00.83XA Contusion of other part of head, initial encounter (principal); S00.10XA Contusion of unspecified eyelid and periocular area, initial encounter; S70.01XA Contusion of right hip, initial encounter; S60.221A Contusion of right hand, initial encounter; S00.03XA Contusion of scalp, initial encounter; W19.XXXA Unspecified fall, initial encounter; Y93.9 Activity, unspecified; Y92.002 Bathroom of unspecified non-institutional (private) residence as the place of occurrence of the external cause; Y99.9 Unspecified external cause status; I10 Essential (primary) hypertension; G20 Parkinson's disease; Z79.84 Long term (current) use of oral hypoglycemic drugs; Z79.899 Other long term (current) drug therapy
CPT/HCPCS: 70450; 70486; 72125; 73130; 73502; 99282

== ENCOUNTER → 2020-07-30 16:19 | Outpatient (CLI) | payer MEDICARE, SELFPAY ==
[2020-07-30 16:11] VITALS: BMI 20.9
[2020-07-30 16:23] LABS: Mucous, Urine 0 SEEN /hpf (<or=2+); Red Blood Cells-Urine 0 SEEN /hpf (0-5)
[2020-07-30 16:57] LABS: Hematocrit 42.9 % (37-47); Hemoglobin 13.8 g/dL (12.0-15.0); Mean Corp Hgb Conc 32.2 g/dL (32-36); Mean Corpuscular Hgb 31.4 pg (27.0-32.0); Mean Corpuscular Volume 97.5 fL (81-99); Mean Platelet Vol. 12.6 fl (6.2-12.0); Platelet Count 322 K/mm3 (150-450); RBC Distribution Width CV 12.3 % (11.6-14.6); RBC Distribution Width SD 43.8 fl (35.1-43.9); White Blood Count 6.5 K/mm3 (4.4-11.0)
[2020-07-30 17:32] LABS: ALB/GLOB Ratio 0.8 RATIO (0.9-2.4); AST(SGOT) 15 U/L (15-37); Alanine Aminotransfer ALT/SGPT 14 U/L (13-56); Albumin, Serum 3.8 g/dL (3.2-5.0); Alkaline Phosphatase 86 U/L (45-117); Anion Gap 6 (5-15); BUN 13 mg/dL (7-18); Calcium,Total 9.2 mg/dL (8.5-10.1); Chloride 105 mmol/L (98-107); Creatinine, Serum 0.93 mg/dL (0.55-1.02); EST Glomerular Filtration Rate 61 mL/min (>60); Est Glom Filt Rate - Afr Amer 74 mL/min (>60); Globulin 4.5 g/dL (2.2-4.2); Glucose 100 mg/dL (74-106); Protein, Total 8.3 g/dL (6.4-8.2); Sodium Level 138 mmol/L (136-145)
[2020-07-31 12:13] LABS: Color, Urine Yellow (Yellow); Glucose, Dipstick Normal (Normal); Ketone-Dipstick Negative (Negative); Leukocyte Esterase-Dipstick 25 /ul (Negative); Nitrite-Dipstick Negative (Negative); Occult Blood-Urine 25 /ul (Negative); Protein-Dipstick Negative (Negative); Specific Gravity, Urine 1.015 (1.002-1.030); Urine Bilirubin Dipstick Negative (Negative); Urine Clarity Clear (Clear); Urine Urobilinogen Normal (Normal)
[2020-07-31 12:22] LABS: Bacteria 1+ /hpf (None Seen); Squamous Epithelial Cells - UA 0-5 SEEN /hpf (5-10); White Blood Cells 0-5 SEEN /hpf (0-5)
== END ==
PROVIDERS: PCP Family Medicine; Visit Provider Nurse Practitioner Family
DX: R53.83 Other fatigue (principal); R29.6 Repeated falls; G20 Parkinson's disease; F03.90 Unspecified dementia, unspecified severity, without behavioral disturbance, psychotic disturbance, mood disturbance, and anxiety
CPT/HCPCS: 36415; 80053; 81001; 85027

== ENCOUNTER → 2020-09-23 12:57 | Outpatient (CLI) | payer MEDICARE, MEDICAID, SELFPAY ==
[2020-07-30 16:11] VITALS: BMI 20.9
--- NOTE | 2020-09-23 13:00 | MRI_ITS ---
STUDY: MRI CERVICAL SPINE WITHOUT CONTRAST REASON FOR EXAM: Female, 85 years old. stenosis, gait disorder -- loss of function right arm/leg x 1 year, unable to bear weight TECHNIQUE: Standardized fat and water weighted pulse sequences were obtained in the sagittal and axial planes. COMPARISON: CT 07/23/2020 FINDINGS: Normal foramen magnum and brainstem-cervical cord junction. Normal craniovertebral junction. Normal anterior atlantoaxial articulation. Normal odontoid process. Kyphosis of the upper cervical spine. Normal vertebral bodies and posterior osseous elements. C2-3: Normal endplates. Normal disc height, signal and morphology. Normal central canal and intervertebral neural foramina. C3-4: 2 mm of anterolisthesis of C3 on C4 with focal kyphosis and a mild broad disc osteophyte complex produces a moderate spinal stenosis with abutment the central spinal cord and no neural foraminal stenosis. C4-5: 2 mm retrolisthesis of C4 on C5 with a mild broad disc osteophyte complex produces moderate spinal stenosis with abutment of the central spinal cord and mild bilateral neural foraminal stenosis. C5-6: 2 mm retrolisthesis of C5 on C6 with a mild broad disc osteophyte complex produces moderate spinal stenosis with abutment the central spinal cord and mild bilateral neural foraminal stenosis. C6-7: Moderate broad disc osteophyte complex produces moderate spinal stenosis with abutment the central spinal cord and mild bilateral neural foraminal stenosis. C7-T1: Normal endplates. Normal disc height, signal and morphology. Normal central canal and intervertebral neural foramina. Normal cervical cord. Normal visualized soft tissue structures. MRI/Spine Cervical (Routine) IMPRESSION: Multilevel degenerative changes, as described above. Electronically Signed: Alejandro Potts MD at 15:06 EST Tel , Service support ,
== END ==
PROVIDERS: PCP Family Medicine; Referring Provider Nurse Practitioner Family; Visit Provider Nurse Practitioner Family
DX: M48.02 Spinal stenosis, cervical region (principal); R26.9 Unspecified abnormalities of gait and mobility
CPT/HCPCS: 72141

== ENCOUNTER → 2020-10-22 | Outpatient (CLI) | payer MEDICARE, SELFPAY ==
[2020-10-22 09:01] LABS: Bacteria 0 SEEN /hpf (None Seen); Mucous, Urine 0 SEEN /hpf (<or=2+); Red Blood Cells-Urine 0 SEEN /hpf (0-5)
[2020-10-22 10:12] LABS: Color, Urine Yellow (Yellow); Glucose, Dipstick Normal (Normal); Ketone-Dipstick Negative (Negative); Leukocyte Esterase-Dipstick 100 /ul (Negative); Nitrite-Dipstick Negative (Negative); Occult Blood-Urine 25 /ul (Negative); Protein-Dipstick Negative (Negative); Specific Gravity, Urine 1.015 (1.002-1.030); Urine Bilirubin Dipstick Negative (Negative); Urine Clarity Clear (Clear); Urine Urobilinogen Normal (Normal)
[2020-10-22 10:15] LABS: Squamous Epithelial Cells - UA 10-25 SEEN /hpf (5-10); White Blood Cells 0-5 SEEN /hpf (0-5)
== END | disposition home or self-care (01) ==
PROVIDERS: Nurse Practitioner Family; PCP Family Medicine; Referring Provider Psychiatry & Neurology Neurology; Visit Provider Psychiatry & Neurology Neurology
DX: R10.9 Unspecified abdominal pain (principal); R41.0 Disorientation, unspecified
CPT/HCPCS: 81001; 87086; 87088

== ENCOUNTER 2020-10-23 15:55 | Emergency (ER) | payer MEDICARE, MEDICAID, SELFPAY ==
[2020-10-23 15:56] VITALS: BP 143/89; PULSE 66; RESP 18; TEMP 36.4; O2SAT 99; BMI 18.1
[2020-10-23 15:59] VITALS: BP 143/89; PULSE 73; RESP 18; TEMP 36.4; O2SAT 99
--- NOTE | 2020-10-23 16:50 | ED.DCSUM_ITS ---
- ER Visit Summary Date of Service: 10/23/20 Chief Complaint: Cough History of Present Illness: The patient is a [address] Salgado. She has a cough that began yesterday. It is nonproductive. She does have shortness of breath with ambulation. Family reports that this is moderate in severity. Krystal ent has subjective fever, chills, sore throat, and sinus drainage. She has diffuse myalgias and generalized weakness. Patient was exposed to Covid 9 to 10 days ago. She has confusion that began a f ew days ago. They had a urinalysis obtained yesterday that showed a questionable UTI and she was started on Keflex last night. Patient denies any urinary symptoms. Physical Examination: Vitals: Stable. Afebrile. General: Well-nourished and well-developed. Head: Normocephalic atraumatic. Neck: Supple, no lymphadenopathy. No JVD. Nontender. Cardiovascular: Regular rate and rhythm. 2 out of 6 systolic murmur. Respiratory: No respiratory distress. Clear to auscultation bilaterally. Abdominal: Soft, nontender, nondistended, normal bowel sounds. No guarding, rebound, or peritoneal signs. Back: Nontender. Extremities: Nontender, no edema. Skin: Normal color, no rash. Neurologic: Alert and oriented ?3. Cranial nerves II through XII are intact. Normal strength and sensation. Psych: Normal affect. Test Results: I reviewed the UA from yesterday. Had 10-25 epithelial cells and no white cells. There is no bacteria. The urine culture shows mixed gram- positive contaminants. CBC shows segmented neutrophils 72, lymphocytes 12, monocytes 12. Chem-7 shows a chloride of 108 and BUN of 20. Lactic acid is 0.8. COVID-19 rapid antigen is negative. Clinical Impression(s) from Imaging Studies Chest X-Ray 10/23/20 17:20 IMPRESSION: Degenerative changes, as described above. No demonstrated acute cardiopulmonary process. Electronically Signed: Waylon Walsh MD at 17:57 EST , Service support , Emergency Department Course and Treatment: Patient refused pain or nausea medications. She is resting comfortably. Treatment Plan: Patient feels well and would like to go home. In fact she is quite angry that she has been here for this long. She will be discharged with instructions to follow-up with her primary care physician in 3 to 5 days not improving. I did have a prolonged discussion with the patient and her granddaughter that the patient may have a false negative Covid test and that she should quarantine. Return to the emergency department for any worsening symptoms. Disposition: To home in improved and stable condition. Impression: 1. URI. 2. COVID-19 exposure. This note was generated with [employer] dictation software. It may contain incorrect words, spelling, and punctuation that were not noted in review of the chart prior to signing ED Disposition - Plan for ED Patient: Disposition: Home or Assisted Living Instructions: ED URI, Viral, No Abx (Adult) Referrals: Darlene Zamora DO [Primary Care Provider] - 1 Week if not improving
[2020-10-23 17:10] VITALS: O2SAT 99
--- NOTE | 2020-10-23 17:20 | RAD_ITS ---
STUDY: X-RAY CHEST REASON FOR EXAM: Female, 85 years old. EXPOSED TO COVID 10 DAYS AGO, C/O BACK PAIN, NEW COUGH TODAY, CHILLS, SORE THROAT, CONFUSION. TECHNIQUE: Single AP portable view of the chest. COMPARISON: February 09, 2016 FINDINGS: There are monitoring devices. The lungs are clear and expanded. There is no demonstrated pleural abnormality. Normal size heart. Normal mediastinum and najma. Normal visualized pulmonary arteries. There is atherosclerotic calcification of the aortic arch with tortuosity. There is demineralization of the osseous structures. Normal visualized ribs, clavicles, and shoulders. There is no demonstrated abnormality of the visualized soft tissue structures of the upper abdomen. RAD/Chest 1 View (Portable) IMPRESSION: Degenerative changes, as described above. No demonstrated acute cardiopulmonary process. Electronically Signed: Waylon Walsh MD at 17:57 EST , Service support ,
[2020-10-23 17:23] LABS: Absolute Lymphocyte Count 1.09 X10^3/uL (0.83-4.51); Absolute Neutrophil Count 6.5 X10^3/uL (2.0-7.7); Basophil# 0.06 X10^3/uL; Basophil% 0.7 % (0-1); Eosinophil# 0.27 X10^3/uL; Hematocrit 40.9 % (37-47); Hemoglobin 13.5 g/dL (12.0-15.0); Lymphocyte # 1.09 X10^3/ul (4.0); Lymphocyte % 12.1 % (19-41); Mean Corpuscular Hgb 31.5 pg (27.0-32.0); Mean Corpuscular Volume 95.3 fL (81-99); Mean Platelet Vol. 12.6 fl (6.2-12.0); Monocyte# 1.07 X10^3/uL; Monocyte% 11.9 % (0-10); NRBC Flagged by Analyzer 0 % (0-5); Platelet Count 257 K/mm3 (150-450); RBC Distribution Width CV 12.6 % (11.6-14.6); RBC Distribution Width SD 43.8 fl (35.1-43.9); Red Blood Count 4.29 M/mm3 (4.2-5.4)
[2020-10-23 17:32] LABS: Anion Gap 4 (5-15); BUN 20 mg/dL (7-18); BUN/Creat Ratio 20.3 RATIO (10-20); Chloride 108 mmol/L (98-107); Creatinine, Serum 0.98 mg/dL (0.55-1.02); EST Glomerular Filtration Rate 57 mL/min (>60); Est Glom Filt Rate - Afr Amer 69 mL/min (>60); Estimated Creatinine Clearance 29.82 ml/min; Glucose 102 mg/dL (74-106); Potassium 3.8 mmol/L (3.5-5.1); Sodium Level 140 mmol/L (136-145)
[2020-10-23 17:53] VITALS: BP 190/71; PULSE 62; RESP 15; TEMP 36.8; O2SAT 98
[2020-10-23 17:55] LABS: Lactic Acid 0.8 mmol/L (0.4-1.9)
[2020-10-23 18:31] VITALS: BP 183/91; PULSE 72; RESP 21; O2SAT 96
== END 2020-10-23 19:03 | disposition home or self-care (01) ==
LOC: ED 16:24
PROVIDERS: Emergency Provider Emergency Medicine; PCP Family Medicine
DX: J06.9 Acute upper respiratory infection, unspecified (principal); Z20.822 Contact with and (suspected) exposure to COVID-19; E03.9 Hypothyroidism, unspecified; Z79.82 Long term (current) use of aspirin; Z79.899 Other long term (current) drug therapy; Z86.73 Personal history of transient ischemic attack (TIA), and cerebral infarction without residual deficits
CPT/HCPCS: 71045; 80048; 83605; 85025; 87040; 87426; 99285

== ENCOUNTER 2022-02-03 01:51 | Emergency (ER) | payer SELFPAY ==
[2022-02-03 01:53] VITALS: BP 139/79; PULSE 58; RESP 15; TEMP 36.5; O2SAT 95; BMI 21.0
--- NOTE | 2022-02-03 02:04 | CT_ITS ---
EXAM: CT HEAD WITHOUT INTRAVENOUS CONTRAST CLINICAL INDICATION: trauma TECHNIQUE: Multiple axial images were obtained of the head without intravenous contrast. This CT exam was performed using one or more of the following dose reduction techniques: automated exposure control, adjustment of the mA and/or kV according to patient size, and/or use of iterative reconstruction technique. This report was created using [employer] report generation technology. COMPARISON: 07/23/2020 FINDINGS: BRAIN AND EXTRA-AXIAL SPACES: There is enlargement of ventricular system and cortical sulci. There is hypoattenuation in the periventricular white matter. No intra- or extra-axial hemorrhage. No evidence of acute infarct. No intracranial mass or mass effect. There is preservation of the mancuso/white matter interface. Posterior fossa structures are unremarkable. Basal cisterns are patent. BONES/JOINTS: There is a nondisplaced fracture of the right nasal bone. No discrete lytic or blastic abnormalities. SOFT TISSUES: There is a scalp hematoma over the frontal bone. SINUSES: Unremarkable as visualized. Clear. MASTOID AIR CELLS: Unremarkable. Clear. ORBITS: Visualized globes, extraocular muscles, optic nerves and retrobulbar fat appear unremarkable. CT/Brain/Head without Contrast IMPRESSION: 1. No acute intracranial abnormality. There has been no change from the reference examination. 2. Stable underlying senescent change with small vessel ischemia. 3. Scalp hematoma over the frontal bone. There is a nondisplaced fracture of the right nasal bone. Electronically Signed: Deric Bailey MD at 2:43 EDT ,
--- NOTE | 2022-02-03 02:04 | EKG12_ITS ---
Test Reason : DYSRHYTHMIA Blood Pressure : / mmHG Vent. Rate : 055 BPM Atrial Rate : 055 BPM P-R Int : 140 ms QRS Dur : 054 ms QT Int : 424 ms P-R-T Axes : 024 -05 080 degrees QTc Int : 405 ms Sinus bradycardia Low voltage QRS Septal infarct , age undetermined Abnormal ECG Confirmed by NATALIE ORTEZ, TOM ([id number]), primer expeditor and drier TERE SANTOYO ([id number]) on 02/03/2022 1:34:59 PM Referred By: ROMAINE Confirmed By:TOM ESTRADA MD
--- NOTE | 2022-02-03 02:04 | RAD_ITS ---
EXAM: XR CHEST, 1 VIEW CLINICAL INDICATION: trauma TECHNIQUE: Frontal view of the chest. This report was created using [employer] report generation technology. COMPARISON: None. FINDINGS: LUNGS AND PLEURAL SPACES: Unremarkable. No consolidation or edema. No pneumothorax. No effusion. HEART: Unremarkable. Cardiac silhouette not enlarged. MEDIASTINUM: Central airways and mediastinal contour are unremarkable. BONES/JOINTS: Unremarkable. SOFT TISSUES: Unremarkable. RAD/Chest 1 View (Portable) IMPRESSION: No radiographic evidence of acute cardiopulmonary disease. Electronically Signed: Deric Bailey MD at 2:40 EDT ,
--- NOTE | 2022-02-03 02:05 | CT_ITS ---
EXAM: CT CERVICAL SPINE WITHOUT INTRAVENOUS CONTRAST CLINICAL INDICATION: trauma TECHNIQUE: Helically acquired images were obtained of the cervical spine without intravenous contrast. 2D reformatted images were reviewed. This CT exam was performed using one or more of the following dose reduction techniques: automated exposure control, adjustment of the mA and/or kV according to patient size, and/or use of iterative reconstruction technique. This report was created using [employer] report generation technology. COMPARISON: 07/23/2020 FINDINGS: VERTEBRAE: There are stable reversal of the cervical lordosis at the C3-4 level. No fracture. No traumatic subluxation. No discrete lytic or blastic abnormality. Normal craniocervical junction and cervicothoracic junction. DISCS/SPINAL CANAL/NEURAL FORAMINA: There is disc space narrowing from C3 through T1. There is right bony neural foraminal narrowing at C4-5. There is bilateral bony neural foraminal narrowing at C5-6 and C6-7. SOFT TISSUES: Unremarkable. No prevertebral soft tissue swelling. LYMPH NODES: Unremarkable. No cervical adenopathy. LUNG APICES: Unremarkable as visualized. Clear. CT/Spine Cervical without Contras IMPRESSION: 1. No acute osseous abnormalities of the cervical spine. There has been no significant change from reference exam. 2. Multilevel degenerative change with disc space narrowing and bony neural foraminal narrowing. Electronically Signed: Deric Bailey MD at 2:45 EDT ,
--- NOTE | 2022-02-03 02:05 | RAD_ITS ---
EXAM: XR LEFT HAND COMPLETE, 3 OR MORE VIEWS CLINICAL INDICATION: trauma TECHNIQUE: Frontal, lateral and oblique views of the left hand. This report was created using [employer] report generation technology. COMPARISON: None. FINDINGS: BONES/JOINTS: There are degenerative changes in the first carpometacarpal joint. No acute fracture. No subluxation. Normal alignment. No sclerotic or destructive changes observed. SOFT TISSUES: Unremarkable. No soft tissue swelling or gas. No radiopaque foreign body. RAD/Hand Min 3 Views IMPRESSION: Mild degenerative changes in the first carpometacarpal joint. There are no acute osseous abnormalities. Electronically Signed: Deric Bailey MD at 2:40 EDT ,
--- NOTE | 2022-02-03 02:07 | EX.ED.GENINJ ---
HPI History of Present Illness Chief Complaint: Fall Informant: patient and family Narrative Narrative: History is through patient and her son. We were initially called by EMS that patient fell hit her head and was unresponsive. However, she was nonverbal and she is very slow to move. This is really her baseline. She has mild dementia but she has severe Parkinson's. When you give her time she can actually answer questions. She is very aware what is going on. She can nod yes and no or point areas slowly. Her son comes in the room and basically states that she is at her baseline. When her son comes in the room she clearly recognizes him. She reaches toward him and smiles. She is actually up pretty good informant when you give her time. She evidently tried to get up out of bed. She fell and hit her head on a nightstand next to the bed. Denies loss of consciousness. Although she has a contusion on her forehead and abrasion on the nose she states her head does not hurt. She has a small skin tear on her left hand small finger MCP. She does state that her left hand hurts but no other area hurts. She has not been ill recently. Review of systems is quite difficult because of answering specific questions but she can say yes or no. [facility] Medical History (Updated 02/03/22 @ 03:[address] Atif Smith MD) Alzheimer's dementia Arthritis Asthma Cataract Essential (primary) hypertension Glaucoma Hypothyroidism Nonrheumatic mitral valve prolapse Parkinson disease Seasonal allergies Home Medications aspirin 81 mg PO DAILY@0800 11/07/13 [History Last Taken Unknown] levothyroxine 75 mcg PO DAILY 11/07/13 [History Last Taken Unknown] ondansetron 4 mg disintegrating tablet 4 mg PO Q8H PRN #90 tab 07/30/20 [Rx Last Taken Unknown] oxybutynin 3.9 mg/24 hour transdermal 4 day patch 1 patch TD 2XW #8 ea 09/03/20 [Rx Last Taken Unknown] carbidopa 25 mg-levodopa 100 mg disintegrating tablet 2 tablet PO TID #180 tablet 12/16/20 [Rx Last Taken Unknown] etodolac 400 mg tablet 400 mg PO BID PRN #60 tablet 12/16/20 [Rx Last Taken Unknown] quetiapine 25 mg tablet 25 mg PO BID #60 tablet 12/16/20 [Rx Last Taken Unknown] Allergy/AdvReac Type Severity Reaction Status Date / Time latanoprost Allergy Unknown Unknown Verified 12/16/20 11:00 timolol [From Timoptic] Allergy Other Verified 12/16/20 11:00 prednisone AdvReac Other Verified 12/16/20 11:00 Family History Mother CAD (coronary artery disease) Myocardial infarction Arthritis Sister CAD (coronary artery disease) Breast cancer Sister CAD (coronary artery disease) Surgical History History of dilatation and curettage History of left heart catheterization (03/2003) Social History Smoking Status: Never smoker alcohol intake: never substance use type: does not use what type of physical activity do you participate in: none ROS ROS ED Constitutional Constitutional ED: Denies fever(s) Eyes Eyes: Denies blurry vision ENT ENT ED: Reports other Details: She denies facial pain Cardiovascular Cardiovascular: Denies chest pain or palpitations Respiratory/Chest Respiratory/Chest: Denies dyspnea Gastrointestinal Gastrointestinal: Denies abdominal pain or vomiting Musculoskeletal Musculoskeletal: Reports other Details: Left hand pain only ; Denies back pain or neck pain Integumentary Reports Abrasions Neurologic Neurologic: Denies headache(s) Hematologic/Lymphatic Hematologic/Lymphatic: Reports other Details: Patient is on baby aspirin only. ; Denies easy bleeding or easy bruising Allergic/Immunologic Allergic/Immunologic ED: Denies urticaria EXAM Physical Exam Const Vital Signs: 02/03/22 01:53 02/03/22 01:59 Temperature 97.7 F L Temperature Source Temporal Pulse Rate 58 L Respiratory Rate 15 Respiratory Effort Normal Respiratory Depth Normal Respiratory Pattern Normal Blood Pressure 139/79 H Blood Pressure Mean 99 Pulse Ox 95 Oxygen Delivery Method Room Air Positive well nourished and well developed General Appearance ED: well developed and NAD HEENT HEENT Narrative: There is a hematoma in the middle of the forehead. There is some abrasion/skin tear on the bridge of the nose. There is a little bit of dried blood in the right nare but no active epistaxis though. No septal hematoma. We are cleaning up her entire scalp and were not finding any other contusions or lacerations. It looks like she probably did hit the front of her head. Eyes EOMs intact bilaterally Neck General: Negative for tenderness Chest Wall inspection of chest normal Resp normal respiratory effort and clear to auscultation bilaterally Resp Narrative: No tenderness of the chest wall. No subcu air. Cardio Rate: regular rate GI normal to inspection, nondistended, normoactive bowel sounds and non-tender Palpation: soft Back/Spine General Back: Negative for CVA tenderness Extremity Extremity Narrative: Small skin tear over the dorsal left hand near the fifth MCP. No deformity. No significant swelling. Neuro Neuro Narrative: Patient is alert. She seems to be alert and oriented to at least person as well as current situation and place. She is at baseline per her son. She clearly recognizes her son. Sensorium / Orientation: alert Psych mental status grossly normal Skin Skin Narrative: Contusions and abrasions as above. MDM MDM MDM Narrative Medical decision making narrative: Patient's blood work shows minimal anemia. Very minimal dehydration. Troponin is negative. No major electrolyte abnormalities. CT scan of the neck shows no acute process. CT scan of the head is normal other than a right nasal fracture. Chest x-ray and left hand x-ray are okay. We rechecked the patient's nose. No bleeding. No hematoma has developed. I do not think the skin tears on the bridge of the nose or hand are amenable to suturing. I think I would more likely tear of the tissue. These should heal well. Patient is still very pleasant. She does admit that she has little soreness in her face and her hand. The hospice nurse is here also. Evidently she is on hospice care at this time. We will get her back to the nursing facility. She, the hospice nurse, and the patient's son are all good with this plan. Lab Data Attestation: I reviewed the patient's lab results. EKG Initial EKG: Comments: EKG done for work-up of a fall in the elderly. EKG read by me shows sinus rhythm with bradycardic rate at 55. No ventricular ectopy. Nonspecific ST and T wave changes and low voltage throughout but no sign of infarct acutely. There is diffuse change ago. SC interval, QRS duration and QTc are normal. Discharge Plan Triage Chief Complaint: Fall ED Provider: Atif Smith Dx/Rx/DC Orders Clinical Impression: Fall at care home, Fracture of nasal bone, Contusion of face, Multiple skin tears Instructions: ED Nose Fracture, with X-Ray, ED Head Injury (Adult) Prescriptions: No Action ondansetron 4 mg tablet,disintegrating 4 mg PO Q8H PRN (Reason: nausea and vomiting) Qty: 90 RF: 1 oxybutynin 3.9 mg/24 hour patch 4 day 1 patch TD 2XW Qty: 8 RF: 1 quetiapine [Seroquel] 25 mg tablet 25 mg PO BID Qty: 60 RF: 1 etodolac 400 mg tablet 400 mg PO BID PRN (Reason: pain) Qty: 60 RF: 1 carbidopa-levodopa 25-100 mg tablet,disintegrating 2 tablet PO TID Qty: 180 RF: 1 aspirin 81 MG tablet,chewable 81 mg PO DAILY@0800 RF: 0 levothyroxine 75 MCG tablet 75 mcg PO DAILY RF: 0 Primary Care Provider: Darlene Zamora Referrals: Darlene Zamora DO [Primary Care Provider] - 3-5 Days if not improving Disposition Disposition: Alf Facility
[2022-02-03 02:15] LABS: Absolute Lymphocyte Count 1.62 X10^3/uL (0.83-4.51); Absolute Neutrophil Count 5.8 X10^3/uL (2.0-7.7); Basophil# 0.04 X10^3/uL; Basophil% 0.5 % (0-1); Eosinophil# 0.27 X10^3/uL; Eosinophils% 3.3 % (0-5); Hematocrit 33.9 % (37-47); Hemoglobin 11.6 g/dL (12.0-15.0); Lymphocyte # 1.62 X10^3/ul (0.83-4.51); Lymphocyte % 19.6 % (19-41); Mean Corp Hgb Conc 34.2 g/dL (32-36); Mean Corpuscular Hgb 36.1 pg (27.0-32.0); Mean Corpuscular Volume 105.6 fL (81-99); Monocyte# 0.52 X10^3/uL; Monocyte% 6.3 % (0-10); NRBC Flagged by Analyzer 0 % (0-5); Neutrophil # 5.78 X10^3/uL (2.7-7.7); Neutrophil % 69.9 % (47-70); Platelet Count 207 K/mm3 (150-450); RBC Distribution Width CV 13.2 % (11.6-14.6); RBC Distribution Width SD 51.8 fl (35.1-43.9); Red Blood Count 3.21 M/mm3 (4.2-5.4); White Blood Count 8.3 K/mm3 (4.4-11.0)
[2022-02-03 02:39] LABS: Anion Gap 6 (5-15); BUN 26 mg/dL (7-18); BUN/Creat Ratio 21.5 RATIO (10-20); Chloride 106 mmol/L (98-107); Creatinine, Serum 1.21 mg/dL (0.55-1.02); EST Glomerular Filtration Rate 45 mL/min (>60); Est Glom Filt Rate - Afr Amer 54 mL/min (>60); Estimated Creatinine Clearance 25.18 ml/min; Glucose 105 mg/dL (74-106); Potassium 4.7 mmol/L (3.5-5.1); Sodium Level 138 mmol/L (136-145); Troponin-I HS 5 pg/mL (3.0-54.0)
[2022-02-03 02:52] VITALS: RESP 18
[2022-02-03 03:00] VITALS: RESP 17
[2022-02-03 03:12] VITALS: BP 129/67; PULSE 59; RESP 18; O2SAT 95
--- NOTE | 2022-02-03 03:19 | ED.RN ---
attempted to call report but nurse out to lunch
== END 2022-02-03 04:08 ==
PROVIDERS: Emergency Provider Emergency Medicine; PCP Family Medicine; Visit Provider Emergency Medicine
DX: S02.2XXA Fracture of nasal bones, initial encounter for closed fracture (principal); G20 Parkinson's disease; F02.80 Dementia in other diseases classified elsewhere, unspecified severity, without behavioral disturbance, psychotic disturbance, mood disturbance, and anxiety; G30.9 Alzheimer's disease, unspecified; S60.512A Abrasion of left hand, initial encounter; S00.83XA Contusion of other part of head, initial encounter; W06.XXXA Fall from bed, initial encounter; Y93.89 Activity, other specified; Y99.8 Other external cause status; Y92.122 Bedroom in nursing home as the place of occurrence of the external cause; I10 Essential (primary) hypertension; E03.9 Hypothyroidism, unspecified; M19.90 Unspecified osteoarthritis, unspecified site; Z51.5 Encounter for palliative care; Z79.82 Long term (current) use of aspirin; Z79.899 Other long term (current) drug therapy
CPT/HCPCS: 70450; 71045; 72125; 73130; 80048; 84484; 85025; 93005; 99285

== ENCOUNTER → 2022-02-03 01:51 | Outpatient (REF) | payer MEDICARE, SELFPAY | LOC: ED 01:51 | PROVIDERS: PCP Family Medicine; Visit Provider Emergency Medicine | DX: S02.2XXA Fracture of nasal bones, initial encounter for closed fracture (principal); F02.80 Dementia in other diseases classified elsewhere, unspecified severity, without behavioral disturbance, psychotic disturbance, mood disturbance, and anxiety; S01.21XA Laceration without foreign body of nose, initial encounter; E03.9 Hypothyroidism, unspecified; H40.9 Unspecified glaucoma; G30.9 Alzheimer's disease, unspecified; G20 Parkinson's disease; E86.0 Dehydration; J45.909 Unspecified asthma, uncomplicated; S00.83XA Contusion of other part of head, initial encounter; S61.419A Laceration without foreign body of unspecified hand, initial encounter; W18.09XA Striking against other object with subsequent fall, initial encounter; M19.90 Unspecified osteoarthritis, unspecified site; I10 Essential (primary) hypertension; Y92.122 Bedroom in nursing home as the place of occurrence of the external cause; Z79.899 Other long term (current) drug therapy; Z79.82 Long term (current) use of aspirin | CPT/HCPCS: 70450; 71045; 72125; 73130; 80048; 84484; 85025; 93005; 99285 ==